=== PATIENT | female | born 1960 | race Caucasian/White ===

== ENCOUNTER 2018-05-21 23:32 | Emergency (ER) | payer BC ==
--- NOTE | 2018-05-22 00:21 | RADIOLOGY REPORT (SQ) ---
XR CHEST 1 VIEW HISTORY: Unresponsive. Chest pain. COMPARISON: None. FINDINGS/IMPRESSION: ET tube with the tip 2.2 cm from the melania. Enteric tube with the tip coiled in the stomach. Normal cardiomediastinal contours. Lungs are clear. No pleural effusion or pneumothorax is seen. Osteopenia.
[2018-05-22 00:24] LABS: ABSOLUTE BASOPHILS # (AUTO) 0.1 10^3/uL (0.0-0.2); ABSOLUTE EOSINOPHILS # (AUTO) 0.3 10^3/uL (0.0-0.6); ABSOLUTE LYMPHOCYTES (AUTO) 4.4 10^3/uL (0.5-4.7); ABSOLUTE MONOCYTES (AUTO) 0.3 10^3/uL (0.1-1.4); ABSOLUTE NEUT (AUTO) 12.2 10^3/uL (1.7-8.2); BASOPHILS % (AUTO) 0.5 % (0-2); EOSINOPHILS % (AUTO) 1.5 % (0-6); HEMATOCRIT 40.8 % (36.0-47.0); HEMOGLOBIN 13.2 g/dL (12.0-15.5); LYMPHOCYTES % (AUTO) 25.6 % (13-45); MEAN CORPUSCULAR HEMOGLOBIN 31.1 pg (27.0-33.4); MEAN CORPUSCULAR HGB CONC 32.4 g/dL (32.0-36.0); MEAN CORPUSCULAR VOLUME 96 fl (80-97); MONOCYTES % (AUTO) 1.5 % (3-13); PLATELET COUNT 289 10^3/uL (150-450); RED BLOOD COUNT 4.26 10^6/uL (3.72-5.28); RED CELL DISTRIBUTION WIDTH 14.2 % (11.5-14.0); SEGMENTED NEUTROPHILS % (AUTO) 70.9 % (42-78); TOTAL CELLS COUNTED % (AUTO) 100 %; WHITE BLOOD COUNT 17.1 10^3/uL (4.0-10.5)
[2018-05-22 00:25] LABS: VENOUS BLOOD BASE EXCESS -12.1 mmol/L; VENOUS BLOOD HCO3 16.3 mmol/L (20-32); VENOUS BLOOD PCO2 45.8 mmHg (35-63)
[2018-05-22] MEDS ORDERED: NICARDIPINE HCL RTU, ISO-OS 20 MG/200 ML RTUINJ IV PRN (00:27)
[2018-05-22 00:31] LABS: VENOUS BLOOD PH 7.17 (7.30-7.42)
[2018-05-22 00:41] LABS: ALBUMIN 4.4 g/dL (3.5-5.0); ALKALINE PHOSPHATASE 252 U/L (38-126); BILIRUBIN,DIRECT 0.5 mg/dL (0.0-0.4); BILIRUBIN,TOTAL 0.5 mg/dL (0.2-1.3); BLOOD UREA NITROGEN 15 mg/dL (7-20); CALCIUM 9.4 mg/dL (8.4-10.2); CHLORIDE 105 mmol/L (98-107); GLUCOSE 204 mg/dL (75-110); TOTAL PROTEIN 7.4 g/dL (6.3-8.2)
[2018-05-22 00:42] LABS: ACETAMINOPHEN < 10 ug/mL (10-30); ALCOHOL < 10 mg/dL (NONE DETECTED); SALICYLATE < 1.0 mg/dL (2.0-20.0)
--- NOTE | 2018-05-22 00:43 | RADIOLOGY REPORT (SQ) ---
EXAM DESCRIPTION: CT CERVICAL SPINE WITHOUT IV CONTRAST COMPLETED DATE/TME: 05/22/2018 00:00 CLINICAL HISTORY: 58 years Female, UNRESPONSIVE Comparison: None. Technique: No contrast. Coronal and sagittal reformat. This exam was performed according to our departmental dose-optimization program, which includes automated exposure control, adjustment of the mA and/or kV according to patient size and/or use of iterative reconstruction technique.[facility]: Dose Right [facility]: CareDose [facility]: Dose Right [facility]: Teradose 4D [facility]: [employer] LIMITATIONS: None Findings: Partially imaged endotracheal and enteric tubes. Moderate vacuum disc desiccation, 0.3 cm C4 degenerative anterolisthesis. Mild spondylosis. Normal curvature. No fracture. Normal vertebral heights. Partially imaged nuchal soft tissues, inferior cranium, and upper thorax appear otherwise grossly intact. IMPRESSION: No acute findings.
[2018-05-22 00:46] LABS: CARBON DIOXIDE 16 mmol/L (22-30); SODIUM 142.5 mmol/L (137-145)
[2018-05-22 00:47] LABS: ANION GAP 22 (5-19)
--- NOTE | 2018-05-22 00:48 | ER Document Report ---
ED General - General Stated Complaint: POSSIBLE POST ARREST Notes: Patient is 58-year-old female who was found unresponsive at her home. Unclear exactly how long she was unresponsive. 911 was called and when the police arrived they found her to be pulseless and therefore since started CPR until paramedics arrived. When paramedics arrived she was in asystole and unresponsive and pulseless. They continued CPR. They gave her 5 rounds of epinephrine and she eventually got return of spontaneous circulation. They intubated with a Ga airway. The placed her on a epi drip while here. When she arrived she is a little hypotensive with systolic blood pressure in the upper 80s. She has only occasional spontaneous breath. She otherwise has no purposeful movement and has not received any sedation. Family came is in the family waiting room. Paramedics had some concern that she has a previous history of drug overdose. says that this only happened once and as far as he knows she has not had any issues with drug overdose on some. He is unsure what may have caused what happened tonight. Past Medical History - Social History Smoking Status: Unknown if Ever Smoked Frequency of alcohol use: None Drug Abuse: None Family History: Reviewed & Not Pertinent Review of Systems - Review of Systems -: Yes ROS unobtainable due to patient's medical condition - unresponsive Physical Exam - Vital signs Vitals: BP 88/52 L 05/21/18 23:32 - Notes Notes: General Appearance: Unresponsive being manually ventilated by paramedics. No purposeful movement. Vitals: reviewed, See vital signs table. Head: no swelling or tenderness to the head Eyes: Pupils are dilated and fixed. Mouth: No decreasd moisture Throat: intubated Lungs: No wheezing, No rales, No rhonci, No accessory muscle use, good air exchange bilaterally. Heart: Normal rate, Regular rythm, No murmur, no rub Abdomen: soft, No rigidity, no abdominal masses, no organomegaly Extremities: good pulses in all extremities, no swelling or tenderness in the extremities, no edema. Skin: warm, dry, appropriate color, no rash Neuro: Patient is completely unresponsive. Pupils are dilated and fixed without any responsive to light. No neurologic function patient shows us occasionally she will take a single spontaneous breath approximately once every 30 seconds. Course - Re-evaluation Re-evalutation: 05/22/18 00:47 CT scan unfortunately confirms my suspicion that the patient most likely has hypoxic brain injury and that she has loss of whitt white matter differentiation with signs of cerebral cerebral edema. I have explained this to the family. I have left in the family waiting room to discuss things and I will go back and talk to them again in about 5-10 minutes. 05/22/18 01:39 Some family is still in the room with the still has not returned back to room. They said he stepped out. I will continue to manage patient to the comes back so we can talk about whether or not to withdraw care or other options. 05/22/18 02:32 Family is back in the room. I did talk to them at length about the patient's. I informed them that she still does not show any signs of significant brain function, that her pupils are still fixed without any reaction to light. Her only neurologic function is that she takes a breath over the vent occasionally, but that this is mor of a primitive brain response and not a sign of any complex brain function. She has no purposeful movement despite being on no sedation. She has no gag reflex. I informed the and the family that I recommend eventual withdrawal of care as the patient will not recover with any significant neurologic function that is capable of having any normal capacity of life. I informed them that I do not feel that neurology or any further specialty could perform any type of procedure that would reverse her hypoxic brain injury being that she was down for a prolonged period time without oxygen or blood flow to her brain and she has very concerning findings on CT scan consistent with severe brain injury. They are understanding of this. They do request that we wait until at least tomorrow before patient is taken off the vent as they want to wait for 1 more family member to come into town. They said that today is the patient's family member's birthday and therefore they will wait until morning before calling her to come in to come see the patient before withdrawing care. I think this is appropriate. I informed them I will make the patient a DNR at this time but will keep her on the ventilator until then. 05/22/18 02:[address] Acosta informed of the patient's condition and the plan. Still does not feel comfortable keeping the patient here at this time being that he does not have an photo lab specialist and neurologist. Despite the patient having signs of severe hypoxic brain injury he is concerned that she is only 58 years old and does request that we transferred to facility that has intensive care especially neurology. I have placed a call to [facility] and I am awaiting to hear back from them. 05/22/18 03:[address] Herbert, traffic lieutenant at [facility], who agrees to accept the patient. I have called the patient's family phones and left them messages, as no one is picking up, to make them aware of the patient's transfer. 05/22/18 03:49 Transport team is arrived to transfer the patient. She continues to take breaths on her own but does not really have any signd of complex neurologic function. She is not on sedation. She continues not have any purposeful movement. Left pupils fixed and dilated. Right pupil is now may be very slightly reactive to light but still has almost no reaction. She still has no gag reflex. She is stable for transport at this time. Dictation of this chart was performed using voice recognition software; therefore, there may be some unintended grammatical errors. 05/22/18 05:48 Of note when the paramedics came back later after the patient was transferred. He patient's was given several doses of Narcan in the field due to concern for potential opiate abuse. He informs me that this concern was because many of the family members in the house at the time appeared to be under the influence of drugs when they arrived. He also informs me that they noticed several Narcan injection kids in the house and that when the family members had tried to give the patient Narcan himself. This points more towards the theory that the patient was probably an opiate overdose with prolonged hypoxemia causing cardiac arrest. Dictation of this chart was performed using voice recognition software; therefore, there may be some unintended grammatical errors. - Vital Signs Vital signs: Temp Pulse Resp BP Pulse Ox 99.5 F 145 H 21 H 181/144 H 100 05/22/18 04:05 05/22/18 04:05 05/22/18 04:05 05/22/18 04:05 05/22/18 04:05 - Laboratory Result Diagrams: 05/22/18 00:06 05/22/18 00:06 Laboratory results interpreted by me: 05/22/18 05/22/18 05/22/18 00:06 00:06 00:06 WBC 17.1 H RDW 14.2 H Monocytes % 1.5 L Absolute Neutrophils 12.2 H VBG pH 7.17 L* VBG HCO3 16.3 L Carbon Dioxide 16 L Anion Gap 22 H Est GFR (Non-Af Amer) 54 L Glucose 204 H Direct Bilirubin 0.5 H AST 1433 H ALT 1391 H Alkaline Phosphatase 252 H Urine Protein Urine Glucose (UA) Urine Blood Ur Leukocyte Esterase Salicylates < 1.0 L Acetaminophen < 10 L 05/22/18 00:06 WBC RDW Monocytes % Absolute Neutrophils VBG pH VBG HCO3 Carbon Dioxide Anion Gap Est GFR (Non-Af Amer) Glucose Direct Bilirubin AST ALT Alkaline Phosphatase Urine Protein 100 H Urine Glucose (UA) 150 H Urine Blood SMALL H Ur Leukocyte Esterase TRACE H Salicylates Acetaminophen - EKG Interpretation by Me Additional EKG results interpreted by me: 05/22/18 00:48 EKG is reviewed and interpreted by me. EKG shows sinus tachycardia with rate of [address] segment elevation. Mild ST segment depression in inferior leads. AR interval, QRS duration QTc intervals are within normal range. Procedures - Central Line Left Femoral Consent obtained: No - emergent Central line pre-insertion: Sterile PPE donned, Chloraprep applied, Sterile drapes applied Central line lumen type: Triple Ultrasound guided: Yes Line secured with sutures: Yes Central line post-insertion: Blood return from lumens, Biopatch applied, Sutured , Sterile dressing applied Number of attempts: 1 Complications: No - Intubation Orotracheal Mallampati Classification: Class 1 Intubation method: Orotracheal Blade type: Fela Blade size: 3 Equipment used: Glidescope ETT size: 7.5 Breath Sounds after Intubation: Equal End tidal CO2 confirmed: Yes Critical Care Note - Critical Care Note Total time excluding time spent on procedures (mins): 65 Comments: Critical time for this patient is approximately 65 minutes due to frequent reevaluations, discussions with family and specialists, management of post cardiac arrest. Discharge - Discharge Clinical Impression: Hypoxic brain injury, Cardiac arrest Condition: Critical Disposition: [facility]
[2018-05-22 00:51] LABS: ALANINE AMINOTRANSFERASE 1391 U/L (9-52); ASPARTATE AMINO TRANSFERASE 1433 U/L (14-36)
--- NOTE | 2018-05-22 00:52 | RADIOLOGY REPORT (SQ) ---
EXAM DESCRIPTION: XR CHEST 1 VIEW COMPLETED DATE/TME: 05/22/2018 00:00 CLINICAL HISTORY: 58 years Female, ADJUSTMENT OF ET TUBE COMPARISON: Same day. NUMBER OF VIEWS/TECHNIQUE: 1/AP FINDINGS: Prominent interstitium, enteric tube tip is 3.0 cm from the melania, likely adequate enteric tube partially obscured distally, normal cardiac silhouette. No pneumothorax. Stable bony thorax. IMPRESSION: Interval line/tube modification.
--- NOTE | 2018-05-22 00:56 | RADIOLOGY REPORT (SQ) ---
CT HEAD WITHOUT IV CONTRAST HISTORY: Unresponsive. Evaluate for bleed. COMPARISON: None. TECHNIQUE: CT scan of the brain. This exam was performed according to our departmental dose-optimization program, which includes automated exposure control, adjustment of the mA and/or kV according to patient size and/or use of iterative reconstruction technique. FINDINGS: Global hypodensity of the brain parenchyma consistent with diffuse cerebral edema. Complete loss of whitt-white matter differentiation with hypodense basal ganglia along with slitlike appearance of the lateral ventricles. These findings are suggestive of hypoxic/ischemic brain injury in the setting of reported cardiac arrest. No definite evidence of acute intracranial hemorrhage or herniation pattern. Paranasal sinuses and mastoid air cells are clear. Calvarium is intact. IMPRESSION: 1. Global hypodensity of the brain parenchyma consistent with diffuse cerebral edema. Complete loss of whitt-white matter differentiation with hypodense basal ganglia along with slitlike appearance of the lateral ventricles. These findings are suggestive of hypoxic/ischemic brain injury in the setting of reported cardiac arrest. 2. No definite evidence of acute intracranial hemorrhage or herniation pattern. Findings were discussed with Dr. Mg at 11:42 PM on 05/21/18.
[2018-05-22 01:16] LABS: AMORPHOUS SEDIMENT,URINE TRACE /HPF; APPEARANCE,URINE CLOUDY; BILIRUBIN,URINE NEGATIVE (NEGATIVE); COLOR,URINE YELLOW; GLUCOSE, URINE 150 mg/dL (NEGATIVE); KETONES,URINE NEGATIVE (NEGATIVE); LEUKOCYTE ESTERASE,URINE TRACE (NEGATIVE); NITRITE,URINE NEGATIVE (NEGATIVE); PROTEIN,URINE 100 mg/dL (NEGATIVE); UROBILINOGEN,URINE NEGATIVE mg/dL (<2.0)
[2018-05-22 01:26] LABS: URINE AMPHETAMINES SCREEN NEGATIVE; URINE BARBITURATES SCREEN NEGATIVE; URINE BENZODIAZEPINES SCREEN UNCONFIRMED POSITIVE; URINE COCAINE SCREEN NEGATIVE; URINE MARIJUANA (THC) SCREEN NEGATIVE; URINE METHADONE SCREEN UNCONFIRMED POSITIVE; URINE PHENCYCLIDINE SCREEN NEGATIVE
[2018-05-22 04:27] VITALS: BP 181/144
--- NOTE | 2018-05-22 08:11 | EKG REPORT ---
SEVERITY:- ABNORMAL ECG - SINUS TACHYCARDIA LEFT ATRIAL ABNORMALITY BORDERLINE ST DEPRESSION, ANTEROLATERAL LEADS : Confirmed by: Marcelo Luke MD 22-May-2018 08:11:16
== END 2018-05-22 04:00 | disposition short-term general hospital (02) ==
LOC: ER 23:32 → EDBD 23:32 → ER 05-22 04:00
PROC: 0BH17EZ Insertion of Endotracheal Airway into Trachea, Via Natural or Artificial Opening (ICD-10-PCS; principal; 2018-05-21)
PROC: 06HN33Z Insertion of Infusion Device into Left Femoral Vein, Percutaneous Approach (ICD-10-PCS; 2018-05-21)
DX: G93.1 Anoxic brain damage, not elsewhere classified (principal); I46.9 Cardiac arrest, cause unspecified; I95.9 Hypotension, unspecified
CPT/HCPCS: 93005; 99291; 51702; 96374; 36415; 80307 ×4; 85025; 80053; 81001; 84484; 82803; 71045 ×2; 70450; 72125; 94660; 93010; 31500; 36556; C1751; J3490